=== PATIENT | female | born 1990 ===

== ENCOUNTER → 2022-09-09 | Outpatient (CLI) | payer OTHER ==
[2022-09-09 14:06] LABS: Candida species (DNA Probe) Negative (NEGATIVE); G. vaginalis (DNA Probe) Positive (NEGATIVE); T. vaginalis (DNA Probe) Negative (NEGATIVE)
== END | disposition home or self-care (01) ==
LOC: LAB SHORT 10:40
PROVIDERS: Family Medicine
DX: Z01.419 Encounter for gynecological examination (general) (routine) without abnormal findings (principal)
CPT/HCPCS: 87480; 87510; 87660

== ENCOUNTER → 2022-10-14 | Outpatient (CLI) | payer OTHER ==
[2022-10-14 15:27] LABS: Source, Urine Voided
[2022-10-14 17:16] LABS: Bilirubin, Urine Neg (Neg); Blood, Urine Neg (Neg); Glucose Qualitative, Urine Neg (Neg); Ketones, Urine Neg (Neg); Leukocyte Esterase, Urine Neg (Neg); Nitrite, Urine Neg (Neg); Protein, Urine Neg (Neg); Specific Gravity, Urine 1.015 (1.003-1.022); Urobilinogen, Urine NORM (Normal)
[2022-10-14 17:33] LABS: Appearance, Urine Clear (Clear); Color, Urine Yellow (P-Yellow)
[2022-10-18 17:09] LABS: CHLAMYDIA TRACHOMATIS, NAA Negative (Negative)
== END | disposition home or self-care (01) ==
LOC: LAB SHORT 15:21 → LAB 15:21
PROVIDERS: Obstetrics & Gynecology
DX: Z01.419 Encounter for gynecological examination (general) (routine) without abnormal findings (principal); R39.82 Chronic bladder pain
CPT/HCPCS: 81003; 87491; 87591

== ENCOUNTER → 2022-12-09 | Outpatient (CLI) | payer OTHER ==
[2022-12-09 15:52] LABS: Source, Urine Voided
[2022-12-09 17:29] LABS: Bacteria Few /hpf; Red Blood Cells, Urine 25-50 /hpf (0-2); Squamous Epithelial Cells Few /hpf (Few)
== END | disposition home or self-care (01) ==
LOC: LAB 15:50 → LAB SHORT 15:50
PROVIDERS: Family Medicine
DX: R30.0 Dysuria (principal)
CPT/HCPCS: 81015; 87086

== ENCOUNTER → 2023-03-17 | Outpatient (CLI) | payer OTHER ==
[2023-03-17 13:57] LABS: Source, Urine Voided
[2023-03-17 15:48] LABS: Red Blood Cells, Urine 0-2 /hpf (0-2)
[2023-03-17 15:49] LABS: Bacteria Many /hpf; Mucus Mod (0-Heavy); Squamous Epithelial Cells Many /hpf (Few)
== END | disposition home or self-care (01) ==
LOC: LAB 13:55 → LAB SHORT 13:55
PROVIDERS: Family Medicine
DX: N30.10 Interstitial cystitis (chronic) without hematuria (principal)
CPT/HCPCS: 81015